=== PATIENT | female | born 2000 | race Two or more races ===

== ENCOUNTER 2023-06-10 11:48 | Emergency (ER) | payer SELFPAY | END 2023-06-10 14:44 | disposition left against medical advice (07) | LOC: ER 11:48 | DX: J11.1 Influenza due to unidentified influenza virus with other respiratory manifestations (principal); Z53.21 Procedure and treatment not carried out due to patient leaving prior to being seen by health care provider ==

== ENCOUNTER 2023-06-12 06:48 | Emergency (ER) | payer SELFPAY ==
[~2023-06-12] VITALS: Ht 167.6 cm; Wt 83.9 kg
[2023-06-12 07:12] VITALS: BP 120/52; PULSE 85; RESP 18; TEMP 97.9; O2SAT 98
[2023-06-12] MEDS ORDERED: PRED20TA2 PO (08:38)
[2023-06-12] MEDS ORDERED: PENI500T2 PO (08:38)
[2023-06-12] MEDS ORDERED: cefTRIAXone SOD 1,000 MG VL IM ONE (08:45)
[2023-06-12] MEDS ORDERED: DexAMETHasone SOD PHOS 10MG/1ML VIAL INJ IM ONE (08:45)
[2023-06-12] MEDS ORDERED: ACETAMINOPHEN 500 MG TAB PO ONE (08:45)
[2023-06-12] MEDS ORDERED: LIDOCAINE 1% HCL (LOCAL ANESTH.) INJ 20ML MDV ID ONE (09:00)
[2023-06-12] MEDS ORDERED: ACET-1079 PO (09:21)
== END 2023-06-12 09:32 | disposition home or self-care (01) ==
LOC: ER 06:48
DX: J03.80 Acute tonsillitis due to other specified organisms (principal); B96.89 Other specified bacterial agents as the cause of diseases classified elsewhere
CPT/HCPCS: 87070; 87880; 96372; 99284; J0696; J1100; J2001